=== PATIENT | male | born 1955 | race Caucasian/White ===

== ENCOUNTER 2020-06-17 18:15 | Emergency (ER) | payer BC ==
[~2020-06-17] VITALS: Ht 170.2 cm; Wt 93.2 kg
[2020-06-17] MEDS ORDERED: IV NORMAL SALINE 500ML 500 ML IV ONE (19:00)
[2020-06-17] MEDS ORDERED: MECLIZINE 12.5 MG TABLET. PO ONE (19:00)
[2020-06-17] MEDS ORDERED: ONDANSETRON PF 4 MG/2 ML VIAL. IVP ONE (19:00)
--- NOTE | 2020-06-17 19:12 | PHYS DOC ---
Past History Past Medical History: GERD, Other Additional Past Medical Histor: vertigo Past Surgical History: Tonsillectomy Alcohol Use: Rarely General Adult EDM: Chief Complaint: DIZZY/LIGHT HEADED HPI: HPI: Patient is a 65-year-old male coming in with dizziness, he feels like things are spinning. Symptoms started 4 to 4-1/2 hours prior to arrival. Patient was in his garage working when he bent down to fiber picker a tool. Says otherwise he felt well recently and denies any recent headaches or illnesses. Denies any hearing loss or tinnitus. No congestion or sore throat. He has had some nausea but no vomiting. Patient states symptoms are better after sitting still but quickly returned when he gets up to move around. Had a similar episode 10 years ago that was treated with Zofran and Valium. Patient states his only medical condit ion is GERD and takes an antacid. Denies any vision changes or diplopia. Review of Systems: Review of Systems: Constitutional: Denies fever or chills Eyes: Denies change in visual acuity HENT: Denies nasal congestion or sore throat Respiratory: Denies cough or shortness of breath Cardiovascular: Denies chest pain or edema GI: Denies abdominal pain, vomiting, bloody stools or diarrhea. But has had some nausea : Denies dysuria Musculoskeletal: Denies back pain or joint pain Integument: Denies rash Neurologic: Denies headache, focal weakness or sensory changes, but is complaining of vertigo Endocrine: Denies polyuria or polydipsia Lymphatic: Denies swollen glands Psychiatric: Denies depression or anxiety Current Medications: Current Meds: Current Medications Medications (Trade) Dose Ordered Sig/Mejia Start Time Stop Time Status Last Admin Dose Admin Meclizine HCl (Antivert) 25 mg 1X ONCE 06/17/20 19:00 06/17/20 19:01 UNV Ondansetron HCl (Zofran) 4 mg 1X ONCE 06/17/20 19:00 06/17/20 19:01 UNV Sodium Chloride 500 ml @ 0 mls/hr 1X ONCE 06/17/20 19:00 06/17/20 19:01 UNV Allergies: Allergies: Allergies Coded Allergies Type Severity Reaction Last Updated Verified No Known Drug Allergies 06/17/20 No Physical Exam: PE: Constitutional: Well developed, well nourished, no acute distress, non-toxic appearance. [] HENT: Normocephalic, atraumatic, bilateral external ears normal, oropharynx moist, no oral exudates, nose normal. [] TMs normal Eyes: PERRLA, EOMI, conjunctiva normal, no discharge. [] Fatigable rotational nystagmus to the left, no up beating nystagmus Neck: Normal range of motion, no tenderness, supple, no stridor. [] Cardiovascular:Heart rate regular rhythm, no murmur [] Lungs & Thorax: Bilateral breath sounds clear to auscultation [] Abdomen: Bowel sounds normal, soft, no tenderness, no masses, no pulsatile masses. [] Skin: Warm, dry, no erythema, no rash. [] Back: No tenderness, no CVA tenderness. [] Extremities: No tenderness, no cyanosis, no clubbing, ROM intact, no edema. [] Neurologic: Alert and oriented X 3, normal motor function, normal sensory function, no focal deficits noted. [] Normal coordination Psychologic: Affect normal, judgement normal, mood normal. [] Current Patient Data: Labs: Laboratory Tests Test 06/17/20 18:39 Glucose (Fingerstick) 120 mg/dL (70-99) H Vital Signs: Vital Signs Date Time Temp Pulse Resp B/P (MAP) Pulse Ox O2 Delivery O2 Flow Rate FiO2 06/17/20 18:34 97.3 63 18 185/89 (121) 98 Room Air EKG: EKG: Sinus rhythm, heart rate 71, no ectopy, normal intervals, no ST elevation or depression. Indeterminate axis [] Radiology/Procedures: Radiology/Procedures: [] Heart Score: Risk Factors: Risk Factors: DM, Current or recent (<one month) smoker, HTN, HLP, family history of CAD, obesity. Risk Scores: Score 0 - 3: 2.5% MACE over next 6 weeks - Discharge Home Score 4 - 6: 20.3% MACE over next 6 weeks - Admit for Clinical Observation Score 7 - 10: 72.7% MACE over next 6 weeks - Early Invasive Strategies Course & Med Decision Making: Course & Med Decision Making Pertinent Labs and Imaging studies reviewed. (See chart for details) Symptoms consistent with peripheral cause, symptoms improved with medications. [] Dragon Disclaimer: Dragon Disclaimer: This electronic medical record was generated, in whole or in part, using a voice recognition dictation system. Departure Departure: Impression: Primary Impression: Vertigo Disposition: 01 DC HOME SELF CARE/HOMELESS Condition: IMPROVED Referrals: KAMILA PADILLA MD (PCP) Patient Instructions: Benign Positional Vertigo Scripts Diazepam (VALIUM) 2 Mg Tablet 2 MG PO TID for dizziness for 5 Days, #15 TAB Prov: RYAN COLE MD 06/17/20 Meclizine Hcl (MOTION RELIEF) 25 Mg Tablet 25 MG PO Q4-6HRS PRN for DIZZINESS for 10 Days, #3 TAB Prov: RYAN COLE MD 06/17/20 Ondansetron (ONDANSETRON ODT) 4 Mg Tab.rapdis 1 TAB PO PRN Q6-8HRS PRN for NAUSEA for 5 Days, #16 TAB Prov: RYAN COLE MD 06/17/20 RYAN COLE MD Jun 17, 2020 19:12
[2020-06-17 19:28] LABS: BASO # 0.1 x10^3/uL (0.0-0.2); BASO % 1 % (0-3); EOS # 0.2 x10^3/uL (0.0-0.7); EOS % 2 % (0-3); HEMATOCRIT 40.2 % (39.0-53.0); HEMOGLOBIN 12.9 g/dL (13.0-17.5); LYMPH # 1.8 x10^3/uL (1.0-4.8); LYMPH % 14 % (24-48); MEAN CORPUSCULAR HEMOGLOBIN 27 pg (25-35); MEAN CORPUSCULAR HGB CONC 32 g/dL (31-37); MEAN CORPUSCULAR VOLUME 85 fL (79-100); MONO # 1.2 x10^3/uL (0.0-1.1); MONO % 9 % (0-9); NEUT # 9.8 x10^3uL (1.8-7.7); NEUT % 75 % (31-73); PLATELET COUNT 337 x10^3/uL (140-400); RED BLOOD COUNT 4.75 x10^6/uL (4.30-5.70); RED CELL DISTRIBUTION WIDTH 14.4 % (11.5-14.5); WHITE BLOOD COUNT 13.1 x10^3/uL (4.0-11.0)
[2020-06-17 19:41] LABS: CALCIUM 8.4 mg/dL (8.5-10.1); CREATININE 1.3 mg/dL (0.7-1.3); GFR 55.6; POTASSIUM 4.4 mmol/L (3.5-5.1)
--- NOTE | 2020-06-17 19:44 | EKG ---
[address] [address] Test Date: 2020-06-17 Test Time: 18:54:15 Pat Name: HUSEYIN HOLLIS Department: Room: Gender: M Monomer [employer] Operator: : [id number] Requested By: RYAN COLE Order Number: [id number] Reading MD: Measurements Intervals [place] Rate: 71 P: 56 UT: 174 QRS: 2 QRSD: 92 T: 51 QT: 390 QTc: 429 Interpretive Statements SINUS RHYTHM NORMAL ECG RI6.02 No previous ECG available for comparison
[2020-06-17 19:46] LABS: ALBUMIN 3.5 g/dL (3.4-5.0); TOTAL BILIRUBIN 0.2 mg/dL (0.2-1.0); TOTAL PROTEIN 7.1 g/dL (6.4-8.2)
[2020-06-17] MEDS ORDERED: diazePAM 2 MG TABLET. PO ONE (20:15)
[2020-06-17] MEDS ORDERED: ONDA4TAB12 PO (20:17)
[2020-06-17] MEDS ORDERED: DIAZ2TAB PO (20:17)
[2020-06-17] MEDS ORDERED: MECL25TA PO (20:17)
[2020-06-17 20:48] VITALS: BP 164/79
== END 2020-06-17 20:50 | disposition home or self-care (01) ==
LOC: ER 18:15
DX: R42 Dizziness and giddiness (principal); R11.10 Vomiting, unspecified; K21.9 Gastro-esophageal reflux disease without esophagitis
CPT/HCPCS: 36415; 80053; 82947; 83735; 84484; 85025; 93005; 96361; 96374; 99284; J2405; J7040; J8597